=== PATIENT | male | born 1990 | race Caucasian/White ===

== ENCOUNTER 2018-03-12 06:12 | Day surgery (SDC) | payer OTHER ==
[~2018-03-12 06:12] MED LIST: cefTRIAXone 2 GM VIAL ONE
[2018-03-12] MEDS ORDERED: LACTATED RINGERS 1,000 ML IV ONE ×3 (06:38→11:16)
--- NOTE | 2018-03-12 06:59 | ANESTHESIA ---
Pre-Anesthesia VS, & Labs - Diagnosis Right clavicle Fracture - Procedure Right clavicle fracture ORIF Vital Signs: Temp Pulse Resp BP Pulse Ox 36.4 C L 71 16 138/76 H 98 03/12/18 06:30 03/12/18 06:30 03/12/18 06:30 03/12/18 06:30 03/12/18 06:30 Height 5 ft 6 in Weight (kg) 72.57 kg - NPO >8 hours Home Medications and Allergies Home Medications: Ambulatory Orders oxyCODONE/ACET 5/325 [Percocet 5 mg/325 mg] 1 each PO Q4-6H PRN 03/09/18 oxyCODONE/ACET 5/325 [Percocet 5 mg/325 mg] 1 each PO Q4-6H PRN 03/09/18 Allergies/Adverse Reactions: Allergies Allergy/AdvReac Type Severity Reaction Status Date / Time No Known Drug Allergies Allergy Verified 03/09/18 14:57 Anes History & Medical History - Anesthetic History Family history of Anesthesia Complications: Denies Family history of Malignant Hyperthermia: Denies - Medical History Cardiovascular: reports: None Pulmonary: reports: None Gastrointestinal: reports: None Urinary: reports: None Neuro: reports: None Musculoskeletal: reports: Other Endocrine/Autoimmune: reports: None Blood Disorders: reports: None Skin: reports: None Smoking Status: Light tobacco smoker (Vapes) Psychosocial: reports: No issues indicated Exam General: Alert, Oriented x3, Cooperative, No acute distress Dental: WNL Mouth Openin Fingerbreadth Neck Mobility: Normal Mallampati classification: II Thyromental Distance: 4-6 cm Respiratory: Lungs clear, Normal breath sounds, No respiratory distress, No accessory muscle use Cardiovascular: Regular rate, Normal S1, Normal S2, No murmurs Mental/Cognitive Status: Alert/Oriented X3, Normal for patient Plan Anesthesia Type: General, Other Block (right superficial cervical plexus block) Regional Block: Per Surgeon's request for Post Op pain control Consent for Procedure(s) Verified and Reviewed: Yes Code Status: Attempt Resuscitation ASA classification: 1-Healthy patient Is this case an emergency?: No
[2018-03-12] MEDS ORDERED: ROPIVACAINE 0.5% PF 20 ML AMPULE ONE (07:10)
[2018-03-12] MEDS ORDERED: BUPIVACAINE 0.25%-EPI 1:200000 PF 30 ML VIAL ONE ×2 (07:17→10:27)
--- NOTE | 2018-03-12 08:19 | ANESTHESIA PROCEDURE NOTE ---
Diagnosis: Right clavicle fracture Procedure: Right superficial cervical plexus block Consent for Procedure(s) Verified and Reviewed: Yes Height and Weight: Height 5 ft 6 in Weight (kg) 72.57 kg Vital Signs: Temp Pulse Resp BP Pulse Ox 36.4 C L 71 16 138/76 H 98 03/12/18 06:30 03/12/18 06:30 03/12/18 06:30 03/12/18 06:30 03/12/18 06:30 Allergies No Known Drug Allergies Allergy (Verified 03/09/18 14:57) Requesting Provider: Dr. King ASA classification: 1-Healthy patient Is this case an emergency?: No Anes. Monitoring and Equipment: Non-invasive BP, Pulse oximetery (EKG monitoring and pulse oximetery) Anes. Procedure Start Time: 07:15 Anes. Procedure Stop Time: 07:25 Procedure Notes: Patient's right neck was prepped with chloroprep. Time out procedure completed. 100mcg fentanyl and 2mg versed was given IV for patient comfort. Ultrasound was used to visualize facial plane between Stercleidomastoid muscle and middle scalene muscle. Under ultrasound guidance, a 22G stimiplex needle was directed toward the facial plane. A total of 10 ml of 0.5% Ropivicaine plus 4mg decadron was injected with adequate spread noted throughout cervical plexus. Patient tolerated the procedure well and was pain free on arrival to OR.
[2018-03-12] MEDS ORDERED: BUPIVACAINE 0.25%-EPI 1:200000 PF 30 ML VIAL SUBQ ONE ×3 (08:21→10:47)
[2018-03-12] MEDS ORDERED: DEXAMETHASONE 4 MG/ML VIAL IVP ONE (08:51)
[2018-03-12] MEDS ORDERED: PROPOFOL 200 MG/20 ML VIAL IVP ONE (08:51)
[2018-03-12] MEDS ORDERED: PHENYLEPHRINE 50 MG/5 ML VIAL IV ONE (08:51)
[2018-03-12] MEDS ORDERED: fentaNYL 100 MCG/2 ML VIAL IVP ONE (08:51)
[2018-03-12] MEDS ORDERED: ROCURONIUM 50 MG/5 ML VIAL IVP ONE (08:51)
[2018-03-12] MEDS ORDERED: ONDANSETRON 4 MG/2 ML VIAL IVP ONE (08:51)
[2018-03-12] MEDS ORDERED: MIDAZOLAM 2 MG/2 ML VIAL IVP ONE (08:51)
[2018-03-12] MEDS ORDERED: KETOROLAC 30 MG/ML VIAL IVP ONE (08:51)
[2018-03-12] MEDS ORDERED: ONDANSETRON 4 MG/2 ML VIAL IVP PRN (11:13)
[2018-03-12] MEDS ORDERED: oxyCODONE 5 MG TABLET PO PRN (11:13)
--- NOTE | 2018-03-12 11:29 | OPERATIVE REPORT ---
Operative Report - General Procedure Date: 03/12/18 Planned Procedure: Right midshaft clavicle open reduction and internal fixation Pre-Op Diagnosis: Right comminuted and displaced midshaft clavicle fracture Procedure Performed: Right midshaft clavicle fracture open reduction and internal fixation Post Op Diagnosis: Right comminuted and displaced midshaft clavicle fracture - Procedure Note Primary Surgeon: VONDA BRAUN Secondary Surgeon: JESSICA ANSARI Anesthesia Technique: General LMA, Local, Regional block Estimated Blood Loss (mL): 50 - Other Other Information/Narrative: DETAILED PROCEDURE: Right clavicle ORIF IMPLANTS: Arthrex midshaft clavicle plate Arthrex 3.5mm cortex screws x6 Arthrex 2.7mm lag screw x2 POSTOPERATIVE PLAN: 0-2 weeks-Sling at all times. Pendulum exercises multiple times per day. 2-6 weeks-Passive range of motion w/o limitation, will advance activity based on healing & radiographs. INDICATION FOR SURGERY: 27-year-old [id number] male who sustained an injury to his right clavicle while snowboarding approximately 6 days ago. Radiographs demonstrated a right midshaft clavicle fracture with comminution and more than 100% displacement. Based on his age, handedness, activity level, fracture shortening, and displacement; the risks and benefits of operative versus nonoperative treatment were discussed. We specifically discussed increased risk of nonunion or malunion with nonoperative treatment, which may result in increased shoulder pain, and fatigue especially with overhead activities. These are balanced against the specific risks of the surgery to include damage to the supraclavicular nerves, painful or prominent hardware, possibly necessitating a second surgery for removal, as well as the potential for nonunion. After that after our discussion the patient elected to proceed with open reduction internal fixation of this fracture. Additional risks of the surgery were discussed including pain, bleeding, infection, damage to nearby structures, chest wall numbness, non-union, implant complications, stiffness, need for further surgeries, DVT, PE, stroke, and even . Questions answered and informed consent was signed. PROCEDURE IN DETAIL: The patient was met in the preoperative holding on the day of the procedure. Operative clavicle was signed. Consent was verified. He desired to proceed. A cervical plexus block was placed by anesthesia. The patient brought to the operating room and surrendered to anesthesia. Once general anesthesia was obtained they were placed in the beach chair position with bony prominences well-padded. They were then prepped and draped in the standard sterile fashion. Incision was marked out along the palpated contour of the clavicle, and then the entire shoulder was enveloped in Ioban. A surgical timeout was held to confirm the patient procedure, identity, procedure, laterality, allergies, images, and antibiotics. All were in agreement we proceeded. The marked incision was injected with 22 mL's of quarter percent Marcaine with epinephrine, to assist with pain control as well as homeostasis. An incision in line with a marked path was made sharply through the skin and subcutaneous tissues with a 10 blade, until the platysma was encountered. Metzenbaum scissors were used in a vertical fashion, to interrogate the platysma and to support the fibers, looking for branches of the supraclavicular nerves: 2 large branches of the supraclavicular nerves were identified and preserved. The subcutaeous flap was developed superficially to allow an approach on the superior aspect of the clavicle. Bovie electrocautery was used to develop the myofascial layer onto the surface of the clavicle, at which point the extent of the medial fragment was visualized. Soft tissue was further dissected to expose the lateral fragment, and the 2 intercalary fragments and the fracture ends were then cleaned of hematoma and debris using a combination of rongeurs, dental picks, and irrigation. The soft tissues were freed up, enough to allow manipu lation of the fracture fragments using a lobster claw and winkn-vj-pcfda clamps, and Adson forceps. The large medial and posterior fracture fragments were manipulated and reduced, and held together with a kitni-tj-eussr clamp. A single 2.7mm screw was lagged by technique, perpendicular to the fracture line. Next the anterior fragment was reduced to the medial segment, held in place with a kafxk-ui-itkxl clamp and then secured using a single 2.7 mm screw lag by technique. At this point the fracture was now a single medial segment and single lateral segment, the fracture line was relatively vertical, and not favorable to either clamping or fixation with K wires. The fracture was reduced, and an Arthrex 8 hole middle clavicle plate was placed over the superior surface of the clavicle and held in place with 2 BB tacks to maintain reduction. Satisfied with the location of the plate, the plate was then affixed using six 3.5 mm cortex screws in neutralization/bridging fashion. Following plate placement, the wound was irrigated, and fluoroscopy was used to confirm placement and screw depth. Satisfied with the construct, the wound was then irrigated again, and the deep myofascial layer was closed using 0 Vicryl in interrupted qoycim-ks-gfgaa fashion. Following repair of this layer the wound was again irrigated, and the platysma and deep dermal layer was closed using 0 Vicryl in interrupted fashion. The subcutaneous tissues were closed using 2-0 Vicryl in interrupted fashion, and the skin was closed with a running subcuticular 4-0 Monocryl. This incision was reinforced with Mastisol and Steri-Strips. An additional 20 mL of quarter percent Marcaine with epinephrine was injected into the alfredo-incisional soft tissues. Xeroform gauze was placed, followed by 4 x 4 gauze and OpSite dressing. The drapes were taken down, the arm was placed in a sling. Anesthesia was reversed, he was extubated, awakened and transferred to the recovery room in stable condition.
[2018-03-12 12:07] VITALS: BP 138/72
--- NOTE | 2018-03-12 13:00 | XRAY Report ---
Reason: surgery ORIF clavicle Procedure Date: 03/12/2018 Accession Number: [id number] / [id number] Procedure: [place] - OR C-Arm Procedure CPT Code: FULL RESULT: EXAM: FLUOROSCOPIC GUIDANCE EXAM DATE: 03/12/2018 10:01 AM. CLINICAL HISTORY: Surgery ORIF clavicle. COMPARISON: None. FINDINGS: Plate and screw construct secured by 6 interlocking screws with 2 additional interfragmentary screws spanning a clavicular fracture. IMPRESSION: Fluoroscopic guidance provided for ORIF of clavicle. Total fluoroscopy time: 6 seconds. Number of images: 1. RADIA
--- NOTE | 2018-03-12 13:09 | XRAY Report ---
Reason: ORIF RIGHT CLAVICLE Procedure Date: 03/12/2018 Accession Number: [id number] / [id number] Procedure: XR - Clavicle RT CPT Code: FULL RESULT: EXAM: RIGHT CLAVICLE RADIOGRAPHY EXAM DATE: 03/12/2018 10:01 AM. CLINICAL HISTORY: ORIF right clavicle. COMPARISON: None. TECHNIQUE: 3 views. FINDINGS: 3 intraoperative fluoroscopic images of plate and screw fixation of a right clavicle fracture are submitted. These demonstrate a plate with 3 proximal interlocking screws and 3 distal interlocking screws as well as 2 separate interfragmentary screws. IMPRESSION: ORIF right clavicle. RADIA
== END 2018-03-12 06:13 | disposition home or self-care (01) ==
LOC: SDS 06:12
PROVIDERS: ATTEND Orthopaedic Surgery
PROC: 0PS904Z Reposition Right Clavicle with Internal Fixation Device, Open Approach (ICD-10-PCS; principal; 2018-03-12 07:30)
DX: S42.011A Anterior displaced fracture of sternal end of right clavicle, initial encounter for closed fracture (principal); Y93.23 Activity, snow (alpine) (downhill) skiing, snowboarding, sledding, tobogganing and snow tubing; Y92.838 Other recreation area as the place of occurrence of the external cause; Y99.8 Other external cause status; F17.290 Nicotine dependence, other tobacco product, uncomplicated
CPT/HCPCS: 23515; 73000; C1713; J7120

== ENCOUNTER 2021-04-18 08:38 | Outpatient (CLI) | payer OTHER ==
--- NOTE | 2021-04-18 09:53 | SLEEP CARE CONSULTATION ---
Information from patient questionnaire entered by Yoon Price MA. I have reviewed and concur with the information entered by Yoon Price MA. This document represents the service I personally performed and the decisions made by me, Jaimie Terrazas ARNP. History of Present Illness Service Date and Time: 04/18/2021 0838 Reason for Visit: New patient (onset 09/2019, no priors, ) Chief Complaint: reports: Unrefreshed sleep, Snoring, Excessive daytime sleepin ess, Frequent awakenings at night Date of Onset: 4-5 YEARS Usual bedtime: 10 PM Time it takes to fall asleep: 20 to 30 minutes to an 1 HOUR Snores at night: Yes Observed to quit breathing while asleep: No Sleeps alone due to snoring: No Number of times waking at night: 2-5 TIMES Reasons for waking at night: reports: Bathroom, Other (unknown reasons). denies: Choking, Snoring, Gasping for air Toss, Turn, or Twitch while sleeping: Yes Recalls having dreams: No (rare occasion to remember dreams) Usually gets out of bed at: 0500; weekends [id number] Feels refreshed in the morning: No (wake up feeling drained) Morning headache: No Sleepy or fatigued during the day: Yes Ever fallen asleep while driving: No (some drowsy driving, no swerving out of james) Takes day naps: No Dreams during day naps: Yes Prior sleep studies: No Additional HPI information: I had the pleasure of seeing FADY SALAZAR today regarding the possibility of him having a sleep disorder. His current complaints are snoring, excessive daytime sleepiness and frequent night awakenings. He can have a hard time falling to sleep sometimes. He will also wake up several times a night. It can come "in waves" of being bad and then getting better for a while. He feels over the last 4-5 years his sleep has been getting worse. He is waking up feeling more and more tired. He does not remember his dreams usually. He denies morning headaches or accidents from drowsy driving. His bed partner has told him that he snores but has not seen him stop breathing in his sleep. He has never woke himself up snoring, choking or gasping for air. His believes his father was diagnosed with sleep apnea and had a sleep machine at one time but is not currently using it. - Parasomnia Symptoms Ever been unable to move upon waking from sleep: Yes Walks in sleep: No Talks in sleep: Yes Ever acted out dreams in sleep: No Ever felt weak in the knees when startled or emotional: No Bothered by creepy, crawly, restless sensations in legs: Yes (uncomfortable feeling in leg, can't walk on it; just when laying down) Problems with memory or concentration: Yes (both; has hard time focusing on online schoolwork; hard time remembering) Subjective Initial [place] Sleepiness Scale score: 9 (2021) Social History The patient's occupation is a AM. Patient is Single and lives in . Have you smoked in the past 12 months: No Alcohol use: Yes Alcohol amount and frequency: 2-3 X WEEKLY Caffeine use: Yes Caffeine amount and frequency: 1 X DAILY Family History Family history of sleep disordered breathing: Yes Family Hx Sleep Apnea: Father: Snoring, Sleep apnea - Untreated Allergies and Home Medications Known drug allergies: No Drug allergies reviewed: Yes Home medication list reviewed: Yes (no daily medications or supplements) Allergy and home medication list: Allergies No Known Drug Allergies Allergy (Verified 03/09/18 14:57) Review of Systems Cardiovascular: denies: high blood pressure Gastrointestinal: denies: heartburn Neurological: denies: headaches, head trauma Psychiatric: denies: Attention Deficit Hyperactivity, anxiety, depression, mood disorder Ear/Nose/Throat: reports: wisdom teeth removed. denies: injury to nose, tonsillectomy Endocrine: denies: thyroid disease Musculoskeletal: reports: other (CLAVICLE AND SHOULDER BLADE; surgery 3 years ago for broken collar bone) Immunologic: denies: allergies to food or environment Physical Exam Vital signs obtained and entered by: Chastity Price cma aand Blood Pressure: 127/79 (RIGHT, PULSE 63, RESP 18,) Cuff size: wrist Heart Rate: 63 O2 Saturation: 99 (CLOTH MASK) Height: 5 ft 6 in Weight: 165 lb Body Mass Index: 26.6 BMI Classification: Overweight Neck circumference: 15.5 (INCH) Mouth and throat: narrow oropharynx Soft palate: normal Hard palate: normal Uvula: normal Uvula visualization: 50% Mallampati Class II Tongue: enlarged in size with teeth burnett on lateral edges Tonsils: small Neck: normal w/o lymphadenopathy or thyromegaly Heart: regular rate and rhythm Lungs: clear bilaterally Impression and Plan 1. Suspected Obstructive Sleep Apnea-Hypopnea Syndrome, as suggested by a history of loud and irregular snoring, frequent awakening during the night, unrefreshed sleep, cognitive impairment, and excessive daytime sleepiness. Narrow oropharynx and obesity are common predisposing factors for obstructive sleep apnea-hypopnea syndrome. I recommend proceeding to polysomnography to confirm the diagnosis and to assess severity. If the patient has significant sleep disordered breathing, a manual CPAP titration study will also be performed to find the optimal treatment pressure. I informed the patient of what the sleep studies involve and after some discussion, obtained agreement to proceed. The pathophysiology of obstructive sleep apnea-hypopnea syndrome was discussed with the patient and health risks of cardiovascular and cerebrovascular disease if not treated. Risks of drowsy driving discussed in detail and patient advised to avoid long distance driving and to pick pulling machine operator at the first sign of drowsiness. Patient agreed to plan. * Schedule polysomnography * Avoid long distance driving or driving when feeling sleepy. * Avoid alcohol, sedative and muscle relaxant around bedtime. * Attempt to lose weight. * Review instructions provided by trained office staff on how to prepare for the sleep study. * Return for follow-up after sleep study completed. Counseling Topics: Weight loss health impact Visit Type: In Office Time Spent with Patient (minutes): 32 Provider Statement: I spent 100% of the Face to Face Visit with the patient with greater than 50% spent counseling the patient and coordination of care.
[2021-04-18 10:03] VITALS: BP 127/79
== END 2021-04-18 08:39 | disposition home or self-care (01) ==
LOC: SC 08:38
PROVIDERS: ATTEND Nurse Practitioner Family
DX: R06.83 Snoring (principal); G47.8 Other sleep disorders; R41.89 Other symptoms and signs involving cognitive functions and awareness; G47.10 Hypersomnia, unspecified
CPT/HCPCS: 99203; 99212

== ENCOUNTER 2021-06-11 13:09 | Outpatient (CLI) | payer OTHER ==
[2021-06-11 13:57] VITALS: BP 124/70
--- NOTE | 2021-06-11 13:57 | SLEEP CARE CONSULTATION ---
Information from patient questionnaire entered by Amisha Salguero. I have reviewed and concur with the information entered by Amisha Salguero. This document represents the service I personally performed and the decisions made by , Jaimie Terrazas ARNP. History of Present Illness Service Date and Time: 06/11/2021 1309 Initial [place] Sleepiness Scale score: 9 (2021) Current [place] Sleepiness Scale score: 7 Additional HPI information: FADY SALAZAR returns for follow up and results of the recently performed polysomnography. The patient was informed of the following findings: No significant sleep disordered breathing with an average AHI of 2.4 and antionette oxygen saturation of 91%. I explained the pathophysiology behind obstructive sleep apnea. Patient does not have sleep apnea and was advised how weight gain could increase the risk of developing sleep apnea in the future. I strongly encouraged the patient to lose weight. Patient has moderate to loud snoring. Snoring can be reduced by weight loss. Weight loss is best achieved with diet consult. Patient instructed to contact PCP for referral. Snoring can also be treated with an oral appliance from a dentist. Advised to check insurance coverage. In addition, an ENT evaluation can be do to see if other treatment is indicated. Patient counseled not drink alcohol less than 4 hours before bedtime as it can increase snoring and apnea. Patient was cautioned about risks of drowsy driving until sleepiness symptoms resolve. Sleep Study - Results Prior sleep studies: No Polysomnography/Home Sleep Study results: IMPRESSION: The quality of the study is good. The patient had normal sleep efficiency. The sleep architecture was normal as well. Respiratory monitoring showed no significant sleep disordered breathing (AHI = 2.4) or hypoxia (antionette oxygen saturation of 91%). The rare respiratory events occurred mainly during REM sleep (supine AHI = 2.5; non-supine = 2.00). Snore was moderate in intensity. There was no significant periodic leg movement of sleep. Cardiac rhythm was normal sinus rhythm without significant arrhythmia. No abnormal behavior (parasomnia) observed during the night. Allergies and Home Medications Known drug allergies: No Drug allergies reviewed: Yes Home medication list reviewed: Yes (no changes) Allergy and home medication list: Allergies No Known Drug Allergies Allergy (Verified 03/09/18 14:57) Review of Systems Review of systems same as previous: Yes (no changes) Physical Exam Vital signs obtained and entered by: Irena SALGUERO MA Blood Pressure: 124/70 (MANUAL) Cuff size: regular Heart Rate: 70 O2 Saturation: 97 Height: 5 ft 6 in Weight: 165 lb Body Mass Index: 26.6 BMI Classification: Overweight Impression and Plan 1. Snoring but no significant sleep disordered breathing. Patient advised that often weight loss will reduce snoring as well as apnea risk. An oral appliance can also be used for snoring. This would require a dental consultation. Patient cautioned not to use other online appliances as can cause bite issues. A list of accredited dentists in [place] who make oral appliances is available in the office. Patient is advised to check if insurance will cover. An ENT consult can also be helpful to determine if any other treatment is an option. Patient states he has had issues with sleep gradually getting worse since he joined the [employer]. AAS booklet on How to Sleep Better given and reviewed with patient. He will follow up as needed. * Attempt to maintain a healthy weight * Avoid alcohol consumption near bedtime * Return as needed for follow up. Counseling Topics: Weight loss health impact Visit Type: In Office Time Spent with Patient (minutes): 13 Provider Statement: I spent 100% of the Face to Face Visit with the patient with greater than 50% spent counseling the patient and coordination of care.
== END 2021-06-11 13:10 | disposition home or self-care (01) ==
LOC: SC 13:09
PROVIDERS: ATTEND Nurse Practitioner Family
DX: R06.83 Snoring (principal)
CPT/HCPCS: 99212